=== PATIENT | female | born 1935 | race African-American/Black ===

== ENCOUNTER 2018-08-23 13:59 | Emergency (ER) | payer MEDICARE, MEDICAID ==
[~2018-08-23] VITALS: Ht 162.6 cm; Wt 55.0 kg
[~2018-08-23 13:59] MED LIST: ALBU18HF2 IH; AZIT500T5 PO; CALC-816 PO; CHOL100044 PO; CLAR10 PO; FERR325T6 PO
[2018-08-23] MEDS ORDERED: SODIUM CHLORIDE 0.9% 1000ML BAG (SEPSIS BOLUS) IV ONE (14:45)
[2018-08-23 15:28] LABS: BASOPHILS % 0.8 % (0.0-2.0); EOSINOPHILS % 1.8 % (0.0-5.0); HEMATOCRIT. 39.6 % (36.0-48.0); HEMOGLOBIN. 13.1 g/dL (12.0-16.0); LYMPHOCYTES % 36.3 % (20.0-50.0); MEAN CORPUSCULAR HEMOGLOBIN 28.2 pg (28.0-32.0); MEAN CORPUSCULAR VOLUME 85.3 fL (81.0-99.0); MEAN PLATELET VOLUME 6.9 fl (7.4-10.4); MONOCYTES % 8.8 % (2.0-8.0); NEUTROPHILS % 52.3 % (40.0-76.0); PLATELET 259 x1000/uL (130-400); RED BLOOD CELL COUNT 4.64 mill/uL (4.2-5.4)
[2018-08-23 15:33] LABS: CHLORIDE 108 mEq/L (98-107)
[2018-08-23] MEDS ORDERED: LORAZEPAM 2MG/ML CPJ IV ONE (16:45)
[2018-08-23 23:30] LABS: CLARITY URINE CLEAR (CLEAR); COLOR URINE YELLOW (YELLOW); KETONES URINE NEGATIVE (NEGATIVE); LEUKOCYTE ESTERASE URINE NEGATIVE (NEGATIVE); NITRITE URINE NEGATIVE (NEGATIVE); OCCULT BLOOD URINE NEGATIVE (NEGATIVE); PH URINE 6.5 (4.5-8.0); PROTEIN URINE NEGATIVE (NEGATIVE); UROBILINOGEN URINE 0.2 E.U./dL (0.2-1.0)
[2018-08-24 03:23] VITALS: BP 135/90
== END 2018-08-24 03:23 | disposition home or self-care (01) ==
LOC: ER 13:59 → CANBEDREQ 08-24 03:42
DX: R53.1 Weakness (principal); J45.909 Unspecified asthma, uncomplicated; I10 Essential (primary) hypertension; F03.90 Unspecified dementia, unspecified severity, without behavioral disturbance, psychotic disturbance, mood disturbance, and anxiety; Z79.899 Other long term (current) drug therapy
CPT/HCPCS: 36415; 71045; 73630; 80053; 81003; 85025; 87040; 93005; 99285; J7030; P9612

== ENCOUNTER 2019-07-06 17:32 | Emergency (ER) | payer MEDICARE, MEDICAID ==
[~2019-07-06] VITALS: Ht 157.5 cm; Wt 60.0 kg
[~2019-07-06 17:32] MED LIST changes: +CALC-38 PO; -CALC-816 PO
[2019-07-06 18:36] LABS: BASOPHILS % 0.6 % (0.0-2.0); EOSINOPHILS % 1.9 % (0.0-5.0); HEMATOCRIT. 36.5 % (36.0-48.0); HEMOGLOBIN. 12.2 g/dL (12.0-16.0); MEAN CORPUSCULAR HEMOGLOBIN 28.5 pg (28.0-32.0); MEAN CORPUSCULAR VOLUME 85.2 fL (81.0-99.0); MEAN PLATELET VOLUME 6.8 fl (7.4-10.4); MONOCYTES % 10.7 % (2.0-8.0); NEUTROPHILS % 48.8 % (40.0-76.0); PLATELET 256 x1000/uL (130-400); RED BLOOD CELL COUNT 4.29 mill/uL (4.2-5.4)
[2019-07-06 18:51] LABS: CLARITY URINE CLOUDY (CLEAR); COLOR URINE YELLOW (YELLOW); KETONES URINE NEGATIVE (NEGATIVE); LEUKOCYTE ESTERASE URINE 3+ (NEGATIVE); NITRITE URINE NEGATIVE (NEGATIVE); OCCULT BLOOD URINE 1+ (NEGATIVE); PH URINE 5.5 (4.5-8.0); PROTEIN URINE NEGATIVE (NEGATIVE); UROBILINOGEN URINE 0.2 E.U./dL (0.2-1.0)
[2019-07-06] MEDS ORDERED: LEVOFLOXACIN 500MG PREMIX 100 ML IV NR (19:30)
[2019-07-06 21:18] VITALS: BP 145/62
== END 2019-07-06 21:20 ==
LOC: ER 17:32 → CANBEDREQ 23:28
DX: N39.0 Urinary tract infection, site not specified (principal); F03.90 Unspecified dementia, unspecified severity, without behavioral disturbance, psychotic disturbance, mood disturbance, and anxiety; J45.909 Unspecified asthma, uncomplicated; M19.90 Unspecified osteoarthritis, unspecified site
CPT/HCPCS: 36415; 80048; 81003; 85025; 87040; 87086; 96365; 99285; J1956